=== PATIENT | male | born 1955 | race Two or more races ===

== ENCOUNTER 2024-07-13 10:49 | Inpatient (IN) | payer OTHER ==
[~2024-07-13] VITALS: Ht 167.6 cm; Wt 92.7 kg
[2024-07-13 11:36] LABS: GLUCOMETER DEV NAME(LOC) ER.7; GLUCOSE,POINT OF CARE 156 MG/DL (70-110)
[2024-07-13 12:05] LABS: BASOPHILS % (AUTO) 0.7 % (0.0-2.0); EOSINOPHILS % (AUTO) 0.9 % (1.0-6.0); HEMATOCRIT 41.1 % (41-53); HEMOGLOBIN 13.7 g/dL (13.5-17.5); LYMPHOCYTES # (AUTO) 0.9 K/uL (1.0-4.8); LYMPHOCYTES % (AUTO) 16.1 % (22.0-44.0); MEAN CORPUSCULAR HEMOGLOBIN 33.6 pg (26.0-34.0); MEAN CORPUSCULAR HGB CONC 33.4 G/dL (31.0-37.0); MEAN CORPUSCULAR VOLUME 101 fL (80-100); MONOCYTES # (AUTO) 0.5 K/uL (0.1-1.0); MONOCYTES % (AUTO) 9.2 % (2.0-9.0); NEUTROPHILS # (AUTO) 3.9 K/uL (1.8-7.7); NEUTROPHILS % (AUTO) 73.1 % (40.0-70.0); PLATELET COUNT (AUTO) 108 K/uL (150-450); RED BLOOD CELL COUNT(AUTO) 4.08 MIL/uL (4.50-5.90); RED CELL DISTRIBUTION WIDTH 13.7 % (11.5-14.5); WHITE BLOOD COUNT (AUTO) 5.4 K/uL (4.5-11.0)
[2024-07-13 12:08] LABS: RBC MORPHOLOGY COMMENT ABNORMAL RBC MORPH
[2024-07-13 12:12] LABS: ANION GAP 10 mmol/L (8-16); CALCIUM, TOTAL 9.4 mg/dL (8.8-10.5); CARBON DIOXIDE 24 mmol/L (22-29); CHLORIDE 107 mmol/L (98-107); CREATININE 1.18 mg/dL (0.60-1.30); GLOMERULAR FILTR. RATE CALC > 60 mL/min (>60); GLUCOSE,RANDOM 154 mg/dL (70-110); POTASSIUM 4.2 mmol/L (3.5-5.1); SODIUM SERUM 141 mmol/L (136-145); UREA NITROGEN, BLOOD 20 mg/dL (7-18)
[2024-07-13 12:59] LABS: APPEARANCE,URINE CLEAR (CLEAR); BILIRUBIN,URINE NEGATIVE (NEGATIVE); COLOR,URINE YELLOW (YELLOW); GLUCOSE, URINE (UA) 70-100 mg/dL (NEGATIVE); KETONES,URINE NEGATIVE (NEGATIVE); LEUKOCYTE ESTERASE ,URINE NEGATIVE (NEGATIVE); NITRATE,URINE NEGATIVE (NEGATIVE); OCCULT BLOOD,URINE NEGATIVE (NEGATIVE); PROTEIN,URINE 30-70 mg/dL (NEGATIVE); SPECIFIC GRAVITIY, URINE 1.018 (1.003-1.030); UROBILINOGEN,URINE <=1.0 mg/dL (<=1.0)
[2024-07-13 13:06] LABS: BACTERIA,URINE None Seen /HPF (None Seen); RBC,URINE 0-2 /HPF (0-2); WBC,URINE None Seen /HPF (0-5)
[2024-07-13] MEDS: TAMSULOSIN HCL 0.4 MG CAPSULE PO ONE (14:08)
[2024-07-13] MEDS ORDERED: SUCR1TAB2 PO (16:24)
[2024-07-13] MEDS ORDERED: AMLO-257 PO (16:24)
[2024-07-13] MEDS ORDERED: DOCU-385 PO (16:24)
[2024-07-13] MEDS ORDERED: SPIR50TA27 PO (16:24)
[2024-07-13] MEDS ORDERED: PANT-31 PO (16:24)
[2024-07-13] MEDS ORDERED: FURO20TA5 PO (16:24)
[2024-07-13] MEDS ORDERED: ACETAMINOPHEN 325 MG TABLET PO PRN (17:00)
[2024-07-13] MEDS ORDERED: HYDROCODONE/ACETAMINOPHEN 5-325 MG TABLET PO PRN (17:00)
[2024-07-13] MEDS ORDERED: MAGNESIUM HYDROXIDE SUSPENSION 30 ML UDCUP PO PRN (17:00)
[2024-07-13] MEDS ORDERED: ZOLPIDEM TARTRATE 5 MG TABLET PO PRN (17:00)
[2024-07-13] MEDS ORDERED: ONDANSETRON HCL 4 MG/2 ML VIAL IVP PRN (17:00)
[2024-07-13] MEDS ORDERED: ALBUTEROL SULFATE 2.5 MG/0.5 ML NEB SOLUTION NEB PRN (17:00)
[2024-07-13] MEDS ORDERED: BISACODYL 10 MG RECTAL RECTAL SUPPOSITORY PR PRN (17:00)
[2024-07-13] MEDS ORDERED: IPRATROPIUM BROMIDE 0.5 MG/2.5 ML NEB SOLUTION NEB PRN (17:00)
[2024-07-13] MEDS ORDERED: DOCUSATE SODIUM 100 MG CAPSULE PO PRN (17:00)
[2024-07-13] MEDS ORDERED: MORPHINE SULFATE 2 MG/ML SYRINGE IVP PRN (17:00)
[2024-07-13 17:40] VITALS: BP 148/74; PULSE 75; RESP 18; TEMP 98.4; O2SAT 98
[2024-07-13] MEDS ORDERED: INFLUENZA VIRUS VACCINE TVS (6MO+) 2024-25/PF 45 MCG/0.5 ML SYRINGE IM. ONE (18:15)
[2024-07-13] MEDS: SUCRALFATE 1 GM TABLET PO SCH (20:04)
[2024-07-13] MEDS: AmLODIPine BESYLATE 5 MG TABLET PO SCH (20:05)
[2024-07-13] MEDS: TAMSULOSIN HCL 0.4 MG CAPSULE PO SCH (20:05)
[2024-07-13 20:10] VITALS: BP 150/75; PULSE 67; RESP 18; TEMP 97.9; O2SAT 98
[2024-07-13] MEDS: HEPARIN SODIUM,PORCINE 5,000 UNITS/ML VIAL SQ SCH (23:41)
[2024-07-14 04:40] VITALS: BP 131/79; PULSE 67; RESP 18; TEMP 97.9; O2SAT 99
[2024-07-14 08:00] VITALS: BP 137/75; PULSE 63; RESP 18; TEMP 98.2; O2SAT 100
[2024-07-14] MEDS ORDERED: PANTOPRAZOLE SODIUM 40 MG DR TABLET PO SCH (09:00)
[2024-07-14] MEDS: FUROSEMIDE 20 MG TABLET PO SCH (09:09)
[2024-07-14] MEDS: SPIRONOLACTONE 50 MG TABLET PO SCH (09:10)
[2024-07-14] MEDS: PANTOPRAZOLE SODIUM 40 MG DR TABLET PO SCH (09:10)
[2024-07-14] MEDS ORDERED: INSULIN LISPRO 100 UNITS/ML SQ PRN (13:00)
[2024-07-14] MEDS ORDERED: DEXTROSE 50%-WATER 25 GM/50 ML SYRINGE IVP PRN (13:00)
[2024-07-14 15:55] VITALS: BP 140/73; PULSE 68; RESP 18; TEMP 97.9; O2SAT 93
[2024-07-14 20:14] VITALS: BP 139/65; PULSE 65; RESP 18; TEMP 98.1; O2SAT 98
[2024-07-15 05:24] VITALS: BP 141/72; PULSE 62; RESP 18; TEMP 98.4; O2SAT 96
[2024-07-15 07:57] LABS: ALANINE AMINOTRANSFERASE 74 U/L (12-78); ALBUMIN 2.5 g/dL (3.4-5.0); ALKALINE PHOSPHATASE 147 U/L (46-116); ANION GAP 5 mmol/L (8-16); ASPARTATE AMINOTRANSFERASE 77 U/L (15-37); CALCIUM, TOTAL 8.7 mg/dL (8.8-10.5); CARBON DIOXIDE 27 mmol/L (22-29); CHLORIDE 106 mmol/L (98-107); CREATININE 0.89 mg/dL (0.60-1.30); GLOMERULAR FILTR. RATE CALC > 60 mL/min (>60); GLUCOSE,RANDOM 125 mg/dL (70-110); POTASSIUM 4.3 mmol/L (3.5-5.1); SODIUM SERUM 138 mmol/L (136-145); UREA NITROGEN, BLOOD 19 mg/dL (7-18)
[2024-07-15 08:00] VITALS: BP 159/69; PULSE 68; RESP 18; TEMP 97.7; O2SAT 93
[2024-07-15 14:00] VITALS: BP 136/69; PULSE 68; RESP 18; TEMP 98.1; O2SAT 95
[2024-07-15 16:17] VITALS: BP 136/69; PULSE 68; RESP 18; TEMP 98.1; O2SAT 95
[2024-07-15 20:18] VITALS: BP 131/70; PULSE 74; RESP 18; TEMP 97.3; O2SAT 95
[2024-07-16 04:30] VITALS: BP 126/68; PULSE 62; RESP 18; TEMP 97.9; O2SAT 94
[2024-07-16 09:03] VITALS: BP 142/69; PULSE 70; RESP 18; TEMP 98; O2SAT 100
[2024-07-16 10:11] LABS: BASOPHILS % (AUTO) 0.6 % (0.0-2.0); EOSINOPHILS % (AUTO) 4.9 % (1.0-6.0); HEMATOCRIT 38.2 % (41-53); HEMOGLOBIN 12.9 g/dL (13.5-17.5); LYMPHOCYTES % (AUTO) 26.8 % (22.0-44.0); MEAN CORPUSCULAR HEMOGLOBIN 33.9 pg (26.0-34.0); MEAN CORPUSCULAR HGB CONC 33.8 G/dL (31.0-37.0); MEAN CORPUSCULAR VOLUME 101 fL (80-100); MONOCYTES # (AUTO) 0.4 K/uL (0.1-1.0); MONOCYTES % (AUTO) 10.4 % (2.0-9.0); NEUTROPHILS % (AUTO) 57.3 % (40.0-70.0); PLATELET COUNT (AUTO) 101 K/uL (150-450); RED CELL DISTRIBUTION WIDTH 13.5 % (11.5-14.5); WHITE BLOOD COUNT (AUTO) 3.6 K/uL (4.5-11.0)
[2024-07-16 10:28] LABS: ANION GAP 6 mmol/L (8-16); CALCIUM, TOTAL 8.9 mg/dL (8.8-10.5); CARBON DIOXIDE 25 mmol/L (22-29); CHLORIDE 105 mmol/L (98-107); CREATININE 1.08 mg/dL (0.60-1.30); GLOMERULAR FILTR. RATE CALC > 60 mL/min (>60); GLUCOSE,RANDOM 277 mg/dL (70-110); POTASSIUM 4.3 mmol/L (3.5-5.1); SODIUM SERUM 136 mmol/L (136-145); UREA NITROGEN, BLOOD 19 mg/dL (7-18)
[2024-07-16 11:19] LABS: RBC MORPHOLOGY COMMENT ABNORMAL RBC MORPH
[2024-07-16] MEDS ORDERED: TAMS0.4C94 PO (13:17)
== END 2024-07-16 14:20 | DRG 726 ==
LOC: EMS 10:49 → EDH 15:08 → 6S 16:55
PROVIDERS: ADMIT Hospitalist; ATTEND Hospitalist
DX: N40.1 Benign prostatic hyperplasia with lower urinary tract symptoms (principal); K74.60 Unspecified cirrhosis of liver; R33.9 Retention of urine, unspecified; E11.9 Type 2 diabetes mellitus without complications
CPT/HCPCS: 80048; 80053; 81001; 82962; 85025; 99285; J1644